=== PATIENT | female | born 1990 | race Caucasian/White ===

== ENCOUNTER 2024-12-09 17:01 | Inpatient (IN) | payer OTHER, SELFPAY ==
[2024-12-09 17:16] VITALS: BP 128/70; PULSE 92; RESP 16; TEMP 36.6; O2SAT 99
[2024-12-09 17:17] VITALS: BMI 28.0
--- NOTE | 2024-12-09 18:31 | PC.ADMIT ---
Mallory arrived via stretcher after being BIBA from [facility]. She was on a medical floor there. Mallory signed a CV in the [facility] registration and signed a 3 day notice upon arrival on M5. Mallory prefers [place] . She is oriented x4 and was cooperative with skin and safety check. Skin check is unremarkable. Mallory was biba to [facility] the other day while intoxicated and telling her mother (after an argument) that she took all 30 of her trazadone pills. She had low potassium and abnormal EKG while there. She was in a monitored bed and She had magnesium and potassium replenishment and her EKG normalized. She states I cant drink anymore. I don't know how to drink just a little. My therapist and I have been talking about this. I do crazy things when I drink. . She reports drinking a 6 pack and 2 tall boys really fast and it hit me hard , she states she normally drinks a couple of times a week now I have been trying to cut back . She states she is a 1.5ppd cigarette smoker, wants NRT. She is open to an addiction consult as well. She denies any health problems and has a PCP. She denies any urges to harm self or others and any visual or perceptual disturbances. She is on 15 minute safety checks.
[2024-12-09 20:00] VITALS: BP 119/60; PULSE 83; RESP 16; TEMP 36.7; O2SAT 99
[2024-12-09 20:47] LABS: Alanine Aminotransferase 48 U/L (0-31); Albumin Level 4.6 g/dL (3.5-5.0); Alkaline Phosphatase 67 U/L (39-117); Anion Gap 13 (12-20); Aspartate Amino Transferase 31 U/L (5-31); Bilirubin Total 0.2 mg/dL (0.0-1.0); Blood Urea Nitrogen 10 mg/dL (9-16); Calcium 10.1 mg/dL (8.4-10.2); Carbon Dioxide 27 mmol/L (22-29); Chloride 106 mmol/L (96-108); Creatinine Clr Calc Pharmacy 85.5; Estimated Glomerular Filt Rate > 60; Glucose Random 191 mg/dL (60-115); Potassium 3.7 mmol/L (3.3-5.1); Sodium 142 mmol/L (135-145); Total Protein 7.4 g/dL (6.5-8.0)
[2024-12-09] MEDS: Nicotine Polacrilex 2 MG GUM 4 MG BUCCAL (22:10)
[2024-12-10] MEDS: traZODone HCL 50 MG TABLET PO ×2 (00:10→23:26)
[2024-12-10 08:00] VITALS: BP 99/48; PULSE 76; TEMP 36.7; O2SAT 96
--- NOTE | 2024-12-10 08:12 | P.CONHOSP_ITS ---
History of Present Illness Data of Consult Service Date: 12/10/24 Primary Care Provider: Unknown Physician HPI Reason for consult: Admission H&P Pt is a 34-year-old female with a PMH significant for?GERD, alcohol use disorder, and anxiety who is admitted to M5 psychiatry unit for increasing depression with SI. Pt had recently had increased life stressors including an ex-boyfriend who was in group home. pt became intoxicated, listening to sad, loud music, and intentionally overdosing on 30 tablets of trazodone. Initially presented to [facility] where she was noted to have somnolence and prolonged QT interval. Was treated with IV magnesium and aggressive IV hydration. Medical consult for admission H&P. ?Pt seen and examined in her room where she is resting comfortably in bed. Pt denies any acute medical concerns: ?I feel okay?. Pt denies headache, increased anxiety, diaphoresis. No auditory, visual, or tactile hallucinations. Denies chest pain/pressure, palpitations. No fever, chills, nausea, vomiting, abdominal pain. Denies chest pain/pressure, palpitations. Labs reviewed, significant for elevated random glucose of 191. Renal and hepatic function WNL. No significant electrolyte abnormalities. Vitals stable and WNL. Review of Systems 2 Review of Systems: Pt has no acute medical complaints at this time. [facility] Medical History (Updated 12/10/24 @ 08:42 by SHAAN Chapa) GERD (gastroesophageal reflux disease) Anxiety Alcohol use disorder Social History Household Members: Family Housing: Apartment Do you presently have visiting nurse or other home services: No Patient Tobacco Use Status: Current everyday Tobacco user Tobacco use type: Cigarette Cigarette Packs Per Day: 1.5 Cigarettes Per Day: 30.0 Smoked in Last 30 Days: Yes e-Cigarette/Vaping Use: Never Used Patient Interested in Nicotine Replacement: Yes Patient Given Instructions on How to Stop Smoking: Yes Date Education Initiated: 12/09/24 Second Hand Smoke Exposure: No Use of substances other than those prescribed or required for medical reasons: No Currently Displaying Signs/Symptoms of Drug Intoxication Withdrawal: No Any prior treatment program specific to substance use: No Have you been hit, kicked, punched, or otherwise hurt by someone within the past year? If so, by whom?: No Do you feel safe in your current relationship?: Yes Is there a partner from a previous relationship who is making you feel unsafe now?: No Are you made to feel afraid or neglected: No Spiritual Healthcare Practices: none Hindu Healthcare Practices: none Cultural Healthcare Practices: none Advance Directives: No Advance Directives Information Provided: No Do you have thoughts of harming others: None Do you have a plan to hurt others: No Plan Recently lost weight without trying: No Nutrition Risks: No Nutritional Risk Patient : No : No Poor oral hygiene: No Meds Allergies Allergy/AdvReac Type Severity Reaction Status Date / Time No Known Allergies Allergy Verified 12/09/24 17:47 Active Medications: Current Medications Acetaminophen (Acetaminophen 325 Mg Tablet) 650 mg PO Q6H PRN PRN Reason: Headache/Pain, Scale 1-10 Al Hydroxide/Mg Hydroxide (Magnesium Hydrox/Alum Hydrox 30 Ml Oral.Susp) 30 ml PO Q6H PRN PRN Reason: Heartburn/Nausea Escitalopram Oxalate (Escitalopram Oxalate 20 Mg Tablet) 20 mg PO DAILY KRISS Hydroxyzine HCl (Hydroxyzine Hcl 25 Mg Tablet) 25 mg PO Q6H PRN PRN Reason: mild anxiety Magnesium Hydroxide (Milk Of Magnesia 30 Ml Oral.Susp) 30 ml PO DAILY PRN PRN Reason: Constipation Nicotine (Nicotine 21 Mg Patch.Td24) 21 mg TRANSDERMA DAILY PRN PRN Reason: smoking cessation Nicotine Polacrilex (Nicotine Polacrilex 2 Mg Gum) 4 mg BUCCAL Q2H PRN PRN Reason: Nicotine Cravings Last Admin: 12/09/24 22:10 Dose: 4 mg Olanzapine (Olanzapine 5 Mg Tablet) 5 mg PO TID PRN PRN Reason: agitation Trazodone HCl (Trazodone Hcl 50 Mg Tablet) 50 mg PO BEDTIME MRX1 PRN PRN Reason: Insomnia Last Admin: 12/10/24 00:10 Dose: 50 mg Home Medications ?Medication ?Instructions ?Recorded ?Confirmed ?Last Taken ?Type escitalopram oxalate 10 mg tablet 10 mg PO QAM 12/09/24 12/09/24 12/09/24 08:00 History folic acid 1 mg tablet 1 mg PO DAILY 12/09/24 12/09/24 Unknown History omeprazole 20 mg capsule,delayed 20 mg PO BID 12/09/24 12/09/24 Unknown History release trazodone 50 mg tablet 50 mg PO BEDTIME 12/09/24 12/09/24 Unknown History Physical Exam 2 Vital Signs and Narrative: Vital Signs: Last Vital Signs Temp 98.1 F 12/09/24 20:00 Pulse 83 12/09/24 20:00 Resp 16 12/09/24 20:00 BP 119/60 12/09/24 20:00 Pulse Ox 99 12/09/24 20:00 O2 Del Method Room Air 12/09/24 20:00 BMI result Body Mass Index 28.0 General: AOx3, no acute distress Resp: CTA bilaterally CVS: S1, S2, RRR GI: +BS, NT, no distention Skin: Warm, dry Neuro: Cranial nerves II-XII grossly intact bilaterally. Motor grossly intact bilaterally. No upper extremity tremors noted. Extremities: No edema Psych: Calm, cooperative Results Labs 12/09/24 20:16 Labs: Laboratory Results - last 24 hr 12/09/24 20:16 Anion Gap 13 Estim Creat Clear Calc 85.5 Estimated GFR > 60 Random Glucose 191 H Calcium 10.1 Total Bilirubin 0.2 AST 31 ALT 48 H Alkaline Phosphatase 67 Total Protein 7.4 Albumin 4.6 Assessment and Plan (1) Medical clearance for psychiatric admission: Status: Acute Plan Pt is a 34-year-old female with a PMH significant for?GERD, alcohol use disorder, and anxiety who is admitted to M5 psychiatry unit for increasing depression with SI. Pt had recently had increased life stressors including an ex-boyfriend who was in group home. pt became intoxicated, listening to sad, loud music, and intentionally overdosing on 30 tablets of trazodone. Initially presented to [facility] where she was noted to have somnolence and prolonged QT interval. Was treated with IV magnesium and aggressive IV hydration. Medical consult for admission H&P. Mood disorder Plan as per psychiatry Alcohol use disorder Does not appear to be in active withdrawal Plan as per psychiatry, addiction medicine GERD Continue PPI Thank you for allowing us to participate in the care of this patient. Signing off at this time. Please re-consult if any acute complaints or issues arise.
[2024-12-10 09:17] LABS: Estimated Average Glucose 123 mg/dL; Hemoglobin A1C 158.8409 umol/L; Hemoglobin A1c % 5.9 % (<6.0); Total Hemoglobin (HGBA1C) 3883.5403 umol/L
[2024-12-10 09:28] LABS: Cholesterol 232 mg/dL (<200); HDL Cholesterol 52 mg/dL (>40); LDL Cholesterol Calculated 134 mg/dL (<100); Triglycerides 231 mg/dL (<150)
[2024-12-10] MEDS: Nicotine 21 MG PATCH.TD24 TRANSDERMA (09:35)
[2024-12-10] MEDS: Escitalopram Oxalate 20 MG TABLET PO (09:37)
[2024-12-10 09:42] LABS: TSH reflex Free T4 2.83 uIU/mL (0.32-4.0)
--- NOTE | 2024-12-10 11:18 | HO.PSYADMNOT ---
HPI Date of Service: 12/10/24 Chief Complaint: gen. anxiety disorder,alcohol use disorder Sources of Information: patient interviewed, chart reviewed and crisis/core team assessment reviewed Additional Sources of Information: Seen 1030am HPI Subjective Notes: Newsome Warning, Conditional Voluntary and 3 Day Healthcare Proxy: No Guardianship: No Medical Problems Affecting Mental Status: No Narrative: I put in a three day, because I have been in the hospital since Saturday, so I am kind of done with all of this. I just need to stop drinking. 34 yo female, [facility] transfer, reports intoxication with possible Trazodone 50 mg #20-30 pills in a suicide attempt after an altercation with her mother. Pt is not sure if she overdosed as she has no recall of this due to intoxication. Pt reports no real precipitant except intoxication, argument with mother and clouded judgment as a result. Also reports partner is incarcerated.Pt has signed a three day notice, I feel stable, I want to discharge ANA, I have been in pt since Saturday and am over it. Past Psychiatric History: IP: [facility] recently (Sep 2024) OD on pills when intoxicated. Completed detox OP: [facility] for therapy; [facility] for psychopharmacology Trials: Hx Denies hx of hiwot or sx of psychosis Medical Evaluation Reviewed: Yes [facility] Medical History (Updated 12/10/24 @ 15:23 by Heather Santiago, ROBOTICS SYSTEMS ENGINEER) Recurrent major depression Generalized anxiety disorder GERD (gastroesophageal reflux disease) Anxiety Alcohol use disorder Family History: Father-alcoholism, cirrhosis which took his life Social History: Only child, lives with her mother. 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 Reports she does not drive Substance History: Alcohol since her teens. Uses 2-3 times per week since [facility] detox Nicotine 1.5 PPD Denies other substance use currently or by history Trauma History: Denies today Diagnostics Vital Signs (24Hr): Vital Signs - 24 hr 12/09/24 17:16 12/09/24 20:00 12/10/24 08:00 Temperature 98 F 98.1 F 98.1 F Pulse Rate 92 83 76 Respiratory Rate 16 16 Blood Pressure 128/70 119/60 99/48 L Pulse Oximetry 99 99 96 Oxygen Delivery Method Room Air BMI result Body Mass Index 28.0 Labs 12/09/24 20:16 Labs: Laboratory Results - last 48 hr 12/09/24 12/10/24 20:16 08:56 Sodium 142 Potassium 3.7 Chloride 106 Carbon Dioxide 27 Anion Gap 13 BUN 10 Creatinine 0.78 Estim Creat Clear Calc 85.5 Estimated GFR > 60 Random Glucose 191 H Estimat Average Glucose 123 Hemoglobin A1c % 5.9 Calcium 10.1 Total Bilirubin 0.2 AST 31 ALT 48 H Alkaline Phosphatase 67 Total Protein 7.4 Albumin 4.6 Triglycerides 231 H Cholesterol 232 H LDL Cholesterol, Calc 134 H HDL Cholesterol 52 TSH 2.83 Meds/Allergies Meds Home Medications ?Medication ?Instructions ?Recorded ?Confirmed ?Type escitalopram oxalate 10 mg tablet 10 mg PO QAM 12/09/24 12/09/24 History folic acid 1 mg tablet 1 mg PO DAILY 12/09/24 12/09/24 History omeprazole 20 mg capsule,delayed 20 mg PO BID 12/09/24 12/09/24 History release trazodone 50 mg tablet 50 mg PO BEDTIME 12/09/24 12/09/24 History Allergies Allergies Allergy/AdvReac Type Severity Reaction Status Date / Time No Known Allergies Allergy Verified 12/09/24 17:47 Mental Status Exam Mental Status Exam Patient Appearance: Fatigued Patient Orientation: Person, Place, Time and Situation Level of Consciousness: Alert Patient Behavior: Appropriate, Talkative, Cooperative and Good Eye Contact Mood Description: Withdrawn Affect Description: Withdrawn Patient Cognition Impaired: No Ability to Follow Directions: Good Speech Pattern: Spontaneous Speech Memory Description: Episodic Impaired Hallucinations: None Delusions: Not Present Thought Process: Goal Oriented Thought Content: positive for Goal Oriented and positive for Suicidal Ideation (denies) Depressive Symptoms: Thoughts of /Suicide (denies) Judgement: Fair Assessment & Plan Assessment & Plan (1) Generalized anxiety disorder: Status: Acute Code(s): F41.1 - Generalized anxiety disorder (2) Recurrent major depression: Status: Acute Code(s): F33.9 - Major depressive disorder, recurrent, unspecified (3) Intentional overdose: Status: Acute Code(s): T50.902A - Poisoning by unspecified drugs, medicaments and biological substances, intentional self-harm, initial encounter Plan Admit, CV, TDN submitted by pt, to 12/15/24. 15 minute checks Continue current regime Addiction consult Collateral Contact Diagnostics as needed Discharge planning Patient educated on: therapeutic strategies Reason for continued inpatient stay Substantial Risk for: rapid decompensation Statement Statement: I have reviewed the history and physical and performed a pertinent examination on my patient. No changes have occurred unless specified. If the History and Physical was not performed prior to admission, the Hospitalist's service will be consulted for completing the admission physical. Time Spent With Patient Time: Total time managing care of this patient today ____ minutes.
[2024-12-10 20:00] VITALS: BP 121/60; PULSE 74; TEMP 36.7; O2SAT 98
[2024-12-11 07:59] VITALS: BP 93/52; PULSE 70; TEMP 36.9; O2SAT 98
[2024-12-11] MEDS: Escitalopram Oxalate 20 MG TABLET PO (08:21)
[2024-12-11 08:24] VITALS: BP 97/46; PULSE 78
[2024-12-11 10:51] VITALS: BP 124/55; PULSE 85
[2024-12-11] MEDS: Omeprazole 20 MG CAPSULE.DR PO ×2 (11:31→20:41)
--- NOTE | 2024-12-11 14:51 | MHC.RECOVRN ---
AUDIT-C Brief Intervention Pt had positive screen for unhealthy alcohol use on admission. Attempted to meet with pt to discuss alcohol use and offer resources, pt declined.
--- NOTE | 2024-12-11 15:53 | MHC.RECOVRN ---
AUDIT-C Brief Intervention Pt had positive screen for unhealthy alcohol use on admission, subsequently met with t/w to discuss alcohol use and recovery supports/options. This sports book writer met with patient to discuss current alcohol use and concerns related to increased risk of alcohol related problems.? Pt reports 6 pack Guadalupe plus 2 22 ounce Coronas 3x weekly. Discussed how alcohol use has impacted health, including negative impact on mental health and overall physical wellbeing. Withdrawal History: denies history of withdrawal/withdrawal seizures Treatment History: one admission at [facility], was there 4-5 days, approx 2-3 months ago Supports:?mom, boyfriend, ex boyfriend Matuesz Discussed risk reduction strategies including drinking below the recommended limit. Provided pt with written resources including information on inpatient and outpatient treatment, KOJO, harm reduction, and recovery coaching. Pt interested in a addictions recovery specialist. Pt declines further intervention, KOJO, appt for treatment related to AUD. Pt plans to return home and follow up with therapist, prescriber, and addictions recovery specialist. Pt provided with t/w contact information if questions or concerns arise. Denies other questions or concerns at this time.? head boys tennis coach referral placed.
--- NOTE | 2024-12-11 16:35 | HO.PSYCHPN ---
Subjective Subjective Date of Service: 12/11/24 Reason For Visit: gen. anxiety disorder,alcohol use disorder Subjective Notes: Conditional Voluntary and 3 Day Healthcare Proxy: No Guardianship: No Medical Problems Affecting Mental Status: No Interim History: Discussed recovery coaching being arranged for her which she is grateful for as she will have support for meetings. Discussed precipitants to OD. Little memory of talking with tw on 12/10. It appears she may have had effects from second half life of Trazodone which we discussed. Denies SI,HI. Attempting to utilize milieu to help herself and strengthen coping skills. Pleased with Lexapro increase. Medication Compliance: Yes Side effects from medications: No Attending Groups: Yes Review of Systems Acute medical concerns: No Review of Systems Review of Systems Denies Mental Status Exam Mental Status Exam Patient Appearance: Appropriate Patient Orientation: Person, Place, Time and Situation Level of Consciousness: Alert Patient Behavior: Appropriate, Talkative, Cooperative and Good Eye Contact Mood Description: Appropriate Affect Description: Appropriate Patient Cognition Impaired: No Ability to Follow Directions: Good Speech Pattern: Spontaneous Speech Memory Description: Episodic Impaired Hallucinations: None Delusions: Not Present Thought Process: Goal Oriented Thought Content: positive for Goal Oriented and positive for Suicidal Ideation (denies) Depressive Symptoms: Thoughts of /Suicide (denies) Judgement: Good Diagnostics Vital Signs (24Hr): Vital Signs - 24 hr 12/10/24 20:00 12/11/24 07:59 12/11/24 08:24 Temperature 98.1 F 98.4 F Pulse Rate 74 70 78 Blood Pressure 121/60 93/52 L 97/46 L Pulse Oximetry 98 98 Oxygen Delivery Method Room Air Room Air 12/11/24 10:51 Temperature Pulse Rate 85 Blood Pressure 124/55 L Pulse Oximetry Oxygen Delivery Method BMI result Body Mass Index 28.0 Labs 12/09/24 20:16 Labs: Laboratory Results - last 48 hr 12/09/24 12/10/24 20:16 08:56 Sodium 142 Potassium 3.7 Chloride 106 Carbon Dioxide 27 Anion Gap 13 BUN 10 Creatinine 0.78 Estim Creat Clear Calc 85.5 Estimated GFR > 60 Random Glucose 191 H Estimat Average Glucose 123 Hemoglobin A1c % 5.9 Calcium 10.1 Total Bilirubin 0.2 AST 31 ALT 48 H Alkaline Phosphatase 67 Total Protein 7.4 Albumin 4.6 Triglycerides 231 H Cholesterol 232 H LDL Cholesterol, Calc 134 H HDL Cholesterol 52 TSH 2.83 Medications Medications Current Medications Acetaminophen (Acetaminophen 325 Mg Tablet) 650 mg PO Q6H PRN PRN Reason: Headache/Pain, Scale 1-10 Al Hydroxide/Mg Hydroxide (Magnesium Hydrox/Alum Hydrox 30 Ml Oral.Susp) 30 ml PO Q6H PRN PRN Reason: Heartburn/Nausea Escitalopram Oxalate (Escitalopram Oxalate 20 Mg Tablet) 20 mg PO DAILY KRISS Last Admin: 12/11/24 08:21 Dose: 20 mg Hydroxyzine HCl (Hydroxyzine Hcl 25 Mg Tablet) 25 mg PO Q6H PRN PRN Reason: mild anxiety Magnesium Hydroxide (Milk Of Magnesia 30 Ml Oral.Susp) 30 ml PO DAILY PRN PRN Reason: Constipation Nicotine (Nicotine 21 Mg Patch.Td24) 21 mg TRANSDERMA DAILY PRN PRN Reason: smoking cessation Last Admin: 12/10/24 09:35 Dose: 21 mg Nicotine Polacrilex (Nicotine Polacrilex 2 Mg Gum) 4 mg BUCCAL Q2H PRN PRN Reason: Nicotine Cravings Last Admin: 12/09/24 22:10 Dose: 4 mg Olanzapine (Olanzapine 5 Mg Tablet) 5 mg PO TID PRN PRN Reason: agitation Omeprazole (Omeprazole 20 Mg Capsule.Dr) 20 mg PO BID KRISS Trazodone HCl (Trazodone Hcl 50 Mg Tablet) 50 mg PO BEDTIME MRX1 PRN PRN Reason: Insomnia Last Admin: 12/10/24 23:26 Dose: 50 mg Allergies Allergies Allergy/AdvReac Type Severity Reaction Status Date / Time No Known Allergies Allergy Verified 12/09/24 17:47 Assessment & Plan Assessment & Plan (1) Generalized anxiety disorder: Status: Acute Code(s): F41.1 - Generalized anxiety disorder (2) Recurrent major depression: Status: Acute Code(s): F33.9 - Major depressive disorder, recurrent, unspecified (3) Intentional overdose: Status: Acute Code(s): T50.902A - Poisoning by unspecified drugs, medicaments and biological substances, intentional self-harm, initial encounter Plan Admit, CV, TDN submitted by pt, to 12/15/24. 15 minute checks Continue current regime Addiction consult Collateral Contact Diagnostics as needed Discharge planning 12/11-Continue to monitor, encourage milieu tx. Reason for continued inpatient stay Substantial Risk for: rapid decompensation Time Spent With Patient Time: Total time managing care of this patient today ____ minutes.
[2024-12-11 20:00] VITALS: BP 130/60; PULSE 88; RESP 16; TEMP 37; O2SAT 98
[2024-12-11] MEDS: traZODone HCL 50 MG TABLET PO (22:35)
[2024-12-12] MEDS: traZODone HCL 50 MG TABLET PO ×2 (00:02→23:15)
[2024-12-12 08:00] VITALS: BP 111/55; PULSE 100; RESP 16; TEMP 36.7; O2SAT 97
[2024-12-12] MEDS: Escitalopram Oxalate 20 MG TABLET PO (10:05)
[2024-12-12] MEDS: Omeprazole 20 MG CAPSULE.DR PO ×2 (10:05→21:04)
--- NOTE | 2024-12-12 10:29 | HO.PSYCHPN ---
Subjective Subjective Date of Service: 12/12/24 Reason For Visit: gen. anxiety disorder,alcohol use disorder Subjective Notes: Conditional Voluntary and 3 Day Interim History: Patient was seen and discussed in rounds today. Records and plans. She has been complaining of some nosebleed and dryness and I ordered saline spray for this. She has visible. Medication compliant. Guarded at times. Eating and sleeping adequately. No other changes were made today. No SI. Review of Systems Review of Systems Yes all other systems are reviewed and are negative Mental Status Exam Mental Status Exam Narrative: In today's visit she is alert, oriented and pleasant. Normal speech. Minimal eye contact. Affect is appropriate and constricted. No signs of psychosis. No AVH. No SI. Cognitively is grossly intact. Able to move all limbs. No gait abnormalities. Judgment is intact Diagnostics Vital Signs (24Hr): Vital Signs - 24 hr 12/11/24 10:51 12/11/24 20:00 12/12/24 08:00 Temperature 98.6 F 98.1 F Pulse Rate 85 88 100 Respiratory Rate 16 16 Blood Pressure 124/55 L 130/60 111/55 L Pulse Oximetry 98 97 Oxygen Delivery Method Room Air Room Air BMI result Body Mass Index 28.0 Labs 12/09/24 20:16 Medications Medications Current Medications Acetaminophen (Acetaminophen 325 Mg Tablet) 650 mg PO Q6H PRN PRN Reason: Headache/Pain, Scale 1-10 Al Hydroxide/Mg Hydroxide (Magnesium Hydrox/Alum Hydrox 30 Ml Oral.Susp) 30 ml PO Q6H PRN PRN Reason: Heartburn/Nausea Escitalopram Oxalate (Escitalopram Oxalate 20 Mg Tablet) 20 mg PO DAILY [facility] Last Admin: 12/12/24 10:05 Dose: 20 mg Hydroxyzine HCl (Hydroxyzine Hcl 25 Mg Tablet) 25 mg PO Q6H PRN PRN Reason: mild anxiety Magnesium Hydroxide (Milk Of Magnesia 30 Ml Oral.Susp) 30 ml PO DAILY PRN PRN Reason: Constipation Nicotine (Nicotine 21 Mg Patch.Td24) 21 mg TRANSDERMA DAILY PRN PRN Reason: smoking cessation Last Admin: 12/10/24 09:35 Dose: 21 mg Nicotine Polacrilex (Nicotine Polacrilex 2 Mg Gum) 4 mg BUCCAL Q2H PRN PRN Reason: Nicotine Cravings Last Admin: 12/09/24 22:10 Dose: 4 mg Olanzapine (Olanzapine 5 Mg Tablet) 5 mg PO TID PRN PRN Reason: agitation Omeprazole (Omeprazole 20 Mg Capsule.Dr) 20 mg PO BID KRISS Last Admin: 12/12/24 10:05 Dose: 20 mg Trazodone HCl (Trazodone Hcl 50 Mg Tablet) 50 mg PO BEDTIME MRX1 PRN PRN Reason: Insomnia Last Admin: 12/12/24 00:02 Dose: 50 mg Allergies Allergies Allergy/AdvReac Type Severity Reaction Status Date / Time No Known Allergies Allergy Verified 12/09/24 17:47 Assessment & Plan Assessment & Plan (1) Generalized anxiety disorder: Status: Acute Code(s): F41.1 - Generalized anxiety disorder (2) Recurrent major depression: Status: Acute Code(s): F33.9 - Major depressive disorder, recurrent, unspecified (3) Intentional overdose: Status: Acute Code(s): T50.902A - Poisoning by unspecified drugs, medicaments and biological substances, intentional self-harm, initial encounter Plan Admit, CV, TDN submitted by pt, to 12/15/24. 15 minute checks Continue current regime Addiction consult Collateral Contact Diagnostics as needed Discharge planning 12/11-Continue to monitor, encourage milieu tx. Reason for continued inpatient stay Substantial Risk for: med/psych decompensation Time Spent With Patient Time: Total time managing care of this patient today ____ minutes.
[2024-12-12] MEDS: Sodium Chloride 0.65 % Nasal 44 ML SPRBTL 1 SPRAY NOSTRIL-B ×2 (10:47→23:15)
[2024-12-12 20:00] VITALS: BP 115/85; PULSE 85; RESP 16; TEMP 36.6; O2SAT 98
[2024-12-13] MEDS: traZODone HCL 50 MG TABLET PO ×3 (01:22→22:38)
[2024-12-13] MEDS: Sodium Chloride 0.65 % Nasal 44 ML SPRBTL 1 SPRAY NOSTRIL-B (01:22)
[2024-12-13 08:00] VITALS: BP 104/57; PULSE 86; TEMP 36.4; O2SAT 97
[2024-12-13] MEDS: Omeprazole 20 MG CAPSULE.DR PO ×2 (08:27→21:31)
[2024-12-13] MEDS: Escitalopram Oxalate 20 MG TABLET PO (08:27)
--- NOTE | 2024-12-13 09:31 | P.PNPSI_ITS ---
Subjective Subjective Date of Service: 12/13/24 Reason For Visit: gen. anxiety disorder,alcohol use disorder Subjective Notes: Conditional Voluntary and 3 Day Interim History: Patient was seen and discussed in rounds today. Records and plans. She has been stable and is doing better. No nosebleeds. The nasal spray has been helpful. Slept better. She is happy to be back on a low-dose lithium. She is having some upper respiratory symptoms and in light of a recent COVID positive discharge patient's labs were ordered. No SI. No other changes were made Review of Systems Review of Systems Yes all other systems are reviewed and are negative Mental Status Exam Mental Status Exam Narrative: In today's visit she is alert, oriented and pleasant. Normal speech. Minimal eye contact. Affect is appropriate and constricted. No signs of psychosis. No AVH. No SI. Cognitively is grossly intact. Able to move all limbs. No gait abnormalities. Judgment is intact Diagnostics Vital Signs (24Hr): Vital Signs - 24 hr 12/12/24 20:00 12/13/24 08:00 Temperature 97.8 F 97.5 F Pulse Rate 85 86 Respiratory Rate 16 Blood Pressure 115/85 104/57 L Pulse Oximetry 98 97 Oxygen Delivery Method Room Air Room Air BMI result Body Mass Index 28.0 Labs 12/09/24 20:16 Medications Medications Current Medications Acetaminophen (Acetaminophen 325 Mg Tablet) 650 mg PO Q6H PRN PRN Reason: Headache/Pain, Scale 1-10 Al Hydroxide/Mg Hydroxide (Magnesium Hydrox/Alum Hydrox 30 Ml Oral.Susp) 30 ml PO Q6H PRN PRN Reason: Heartburn/Nausea Escitalopram Oxalate (Escitalopram Oxalate 20 Mg Tablet) 20 mg PO DAILY [facility] Last Admin: 12/13/24 08:27 Dose: 20 mg Hydroxyzine HCl (Hydroxyzine Hcl 25 Mg Tablet) 25 mg PO Q6H PRN PRN Reason: mild anxiety Magnesium Hydroxide (Milk Of Magnesia 30 Ml Oral.Susp) 30 ml PO DAILY PRN PRN Reason: Constipation Nicotine (Nicotine 21 Mg Patch.Td24) 21 mg TRANSDERMA DAILY PRN PRN Reason: smoking cessation Last Admin: 12/10/24 09:35 Dose: 21 mg Nicotine Polacrilex (Nicotine Polacrilex 2 Mg Gum) 4 mg BUCCAL Q2H PRN PRN Reason: Nicotine Cravings Last Admin: 12/09/24 22:10 Dose: 4 mg Olanzapine (Olanzapine 5 Mg Tablet) 5 mg PO TID PRN PRN Reason: agitation Omeprazole (Omeprazole 20 Mg Capsule.Dr) 20 mg PO BID [facility]ISS Last Admin: 12/13/24 08:27 Dose: 20 mg Sodium Chloride (Sodium Chloride 0.65 % Nasal 44 Ml Sprbtl) 1 spray NOSTRIL-B Q1H PRN PRN Reason: Dry Nasal Passages Last Admin: 12/13/24 01:22 Dose: 1 spray Trazodone HCl (Trazodone Hcl 50 Mg Tablet) 50 mg PO BEDTIME MRX1 PRN PRN Reason: Insomnia Last Admin: 12/13/24 01:22 Dose: 50 mg Allergies Allergies Allergy/AdvReac Type Severity Reaction Status Date / Time No Known Allergies Allergy Verified 12/09/24 17:47 Assessment & Plan Assessment & Plan (1) Generalized anxiety disorder: Status: Acute Code(s): F41.1 - Generalized anxiety disorder (2) Recurrent major depression: Status: Acute Code(s): F33.9 - Major depressive disorder, recurrent, unspecified (3) Intentional overdose: Status: Acute Code(s): T50.902A - Poisoning by unspecified drugs, medicaments and biological substances, intentional self-harm, initial encounter Plan Admit, CV, TDN submitted by pt, to 12/15/24. 15 minute checks Continue current regime Addiction consult Collateral Contact Diagnostics as needed Discharge planning 12/12-Continue to monitor, encourage milieu tx. 12/13: Continue current plans and regimen. SARs test panel ordered Patient educated on: medication risk/benefits Reason for continued inpatient stay Substantial Risk for: med/psych decompensation Time Spent With Patient Time: Total time managing care of this patient today ____ minutes.
[2024-12-13 10:40] LABS: Influenza A PCR NEGATIVE (Negative); Influenza B PCR NEGATIVE (Negative); Resp Syncy Virus RNA Qual PCR NEGATIVE (Negative); SARS COV2 PCR INHOUSE POSITIVE (Negative)
[2024-12-13 18:10] VITALS: BP 130/87; PULSE 82; TEMP 37.2; O2SAT 96
[2024-12-13] MEDS: Acetaminophen 325 MG TABLET 650 MG PO (18:11)
[2024-12-13 20:00] VITALS: BP 135/61; PULSE 98; TEMP 37.2; O2SAT 98
[2024-12-14] MEDS: Sodium Chloride 0.65 % Nasal 44 ML SPRBTL 1 SPRAY NOSTRIL-B ×2 (03:51→14:06)
[2024-12-14 08:00] VITALS: BP 112/56; PULSE 100; RESP 16; TEMP 36.8; O2SAT 97
[2024-12-14] MEDS: Omeprazole 20 MG CAPSULE.DR PO ×2 (08:50→21:21)
[2024-12-14] MEDS: Escitalopram Oxalate 20 MG TABLET PO (08:50)
[2024-12-14] MEDS: Acetaminophen 325 MG TABLET 650 MG PO ×2 (08:50→21:21)
--- NOTE | 2024-12-14 10:10 | HO.PSYCHPN ---
Subjective Subjective Date of Service: 12/14/24 Reason For Visit: gen. anxiety disorder,alcohol use disorder Interim History: Met with patient; discussed with team; reviewed chart Patient said that she is feeling better and would like discharge; 3 day notice is due tomorrow. Patient initially said she still was not sure if she actually overdose did not since she was very intoxicated at the time but accepted freelance writer's explanation that it was confirmed she did overdose on trazodone given the fact that she had significantly elevated QTC up to 610 as reported by sending facility. (Her 1st overdose ingestion was on September 27; this December 07 was the 2nd one). Patient says that she very much needs to stop drinking and sees this as the cause of her overdoses. She says she would like a chemical recovery operator. However does not want to stay any longer on the unit for this to be facilitated. She denies any SI at all and says overall does not struggle with that much depression in general. Mental Status Exam Mental Status Exam Narrative: Pt is alert and oriented; behavior is cooperative, friendly and calm; patient is not in distress; dressed in casual attire with unkempt hair but adequate hygiene; mood is described as Not too much depression and affect congruent; eye contact appropriate; Speech is normal rate, volume and prosody and not pressured; no psychomotor agitation/retardation present; thought process is organized and goal directed; Thought content is on tx; otherwise pertinent to relevant topics and without any delusional content, paranoid ideations or grandiosity; denies any SI/HI. Denies AVH and there is no evidence of perceptual disturbance. Patients insight and judgment improved. Diagnostics Vital Signs (24Hr): Vital Signs - 24 hr 12/13/24 18:10 12/13/24 20:00 Temperature 99.0 F 99.0 F Pulse Rate 82 98 Blood Pressure 130/87 135/61 Pulse Oximetry 96 98 Oxygen Delivery Method Room Air Room Air BMI result Body Mass Index 28.0 Labs 12/09/24 20:16 Labs: Laboratory Results - last 48 hr 12/13/24 09:38 Influenza Type A (PCR) NEGATIVE Influenza Type B (PCR) NEGATIVE RSV RNA Qual (PCR) NEGATIVE SARS-CoV-2 RNA (RT-PCR) POSITIVE A Medications Medications Current Medications Acetaminophen (Acetaminophen 325 Mg Tablet) 650 mg PO Q6H PRN PRN Reason: Headache/Pain, Scale 1-10 Last Admin: 12/14/24 08:50 Dose: 650 mg Al Hydroxide/Mg Hydroxide (Magnesium Hydrox/Alum Hydrox 30 Ml Oral.Susp) 30 ml PO Q6H PRN PRN Reason: Heartburn/Nausea Escitalopram Oxalate (Escitalopram Oxalate 20 Mg Tablet) 20 mg PO DAILY [facility] Last Admin: 12/14/24 08:50 Dose: 20 mg Hydroxyzine HCl (Hydroxyzine Hcl 25 Mg Tablet) 25 mg PO Q6H PRN PRN Reason: mild anxiety Magnesium Hydroxide (Milk Of Magnesia 30 Ml Oral.Susp) 30 ml PO DAILY PRN PRN Reason: Constipation Nicotine (Nicotine 21 Mg Patch.Td24) 21 mg TRANSDERMA DAILY PRN PRN Reason: smoking cessation Last Admin: 12/10/24 09:35 Dose: 21 mg Nicotine Polacrilex (Nicotine Polacrilex 2 Mg Gum) 4 mg BUCCAL Q2H PRN PRN Reason: Nicotine Cravings Last Admin: 12/09/24 22:10 Dose: 4 mg Olanzapine (Olanzapine 5 Mg Tablet) 5 mg PO TID PRN PRN Reason: agitation Omeprazole (Omeprazole 20 Mg Capsule.Dr) 20 mg PO BID [facility] Last Admin: 12/14/24 08:50 Dose: 20 mg Sodium Chloride (Sodium Chloride 0.65 % Nasal 44 Ml Sprbtl) 1 spray NOSTRIL-B Q1H PRN PRN Reason: Dry Nasal Passages Last Admin: 12/14/24 03:51 Dose: 1 spray Trazodone HCl (Trazodone Hcl 50 Mg Tablet) 50 mg PO BEDTIME MRX1 PRN PRN Reason: Insomnia Last Admin: 12/13/24 22:38 Dose: 50 mg Allergies Allergies Allergy/AdvReac Type Severity Reaction Status Date / Time No Known Allergies Allergy Verified 12/09/24 17:47 Assessment & Plan Assessment & Plan (1) Generalized anxiety disorder: Status: Acute Code(s): F41.1 - Generalized anxiety disorder (2) Recurrent major depression: Status: Acute Code(s): F33.9 - Major depressive disorder, recurrent, unspecified (3) Intentional overdose: Status: Acute Code(s): T50.902A - Poisoning by unspecified drugs, medicaments and biological substances, intentional self-harm, initial encounter Plan Admitted for 2nd overdose while intoxicated; elevated QTC up to 610 (later resolved and for 10 on discharge) Her 1st overdose ingestion was on September 27) Hospital course: 12/12-Continue to monitor, encourage milieu tx. 12/13: Continue current plans and regimen. SARs test panel ordered 12/14 Patient said that she is feeling better and would like discharge; 3 day notice is due tomorrow. Patient initially said she still was not sure if she actually overdose did not since she was very intoxicated at the time but accepted freelance writer's explanation that it was confirmed she did overdose on trazodone given the fact that she had significantly elevated QTC up to 610 as reported by sending facility (resolved and 410 on dc). Patient says that she very much needs to stop drinking and sees this as the cause of her overdoses. She says she would like a chemical recovery operator. However does not want to stay any longer on the unit for this to be facilitated. She denies any SI at all and says overall does not struggle with that much depression in general. -COVID positive Plan: 3 day notice due 12/15/24. 15 minute checks Continue current regime Addiction consult Collateral Contact Diagnostics as needed Discharge planning Patient educated on: diagnosis, medication risk/benefits, substance abuse and medical condition Informed Consent: understands Reason for continued inpatient stay Substantial Risk for: stable for discharge and rapid decompensation Time Spent With Patient Time: Total time managing care of this patient today ____ minutes.
[2024-12-14 20:00] VITALS: BP 106/54; PULSE 97; RESP 18; TEMP 36.9; O2SAT 98
[2024-12-14] MEDS: traZODone HCL 50 MG TABLET PO ×2 (20:50→21:57)
[2024-12-15 08:32] VITALS: BP 114/67; PULSE 81; RESP 16; TEMP 36.6; O2SAT 97
[2024-12-15] MEDS: Escitalopram Oxalate 20 MG TABLET PO (09:17)
[2024-12-15] MEDS: Omeprazole 20 MG CAPSULE.DR PO (09:17)
--- NOTE | 2024-12-15 15:11 | P.DS_ITS ---
DS: Providers Provider Date of Service: 12/15/24 Date of admission: 12/09/24 17:01 Date of discharge: 12/15/24 Primary care physician: Unknown Physician Admitting clinician: Heather Santiago Attending physician on admission: Luis Enrique Wiggins Consults: 12/09/24 17:55 Consult to Hospitalist Routine Comment: Consulting Provider: [facility] Reason For Exam: admission 12/09/24 19:53 Addiction Medicine Provider Routine Consulting Provider: Addiction Covering Reason for consultation: alcohol use disorder Attending physician on discharge: Luis Enrique Wiggins Discharging clinician: Heather Santiago DS: Diagnosis Discharge Diagnosis (1) Generalized anxiety disorder: Status: Acute (2) Recurrent major depression: Status: Acute (3) Intentional overdose: Status: Acute DS: Medications Discharge Medications Home Medications: Previous Rx's ?Medication ?Instructions ?Recorded acetaminophen 325 mg tablet 650 mg (2 x 325 mg) PO Q6H PRN 12/15/24 Headache/Pain, Scale 1-10 #0 tabs escitalopram oxalate 20 mg tablet 20 mg PO DAILY #30 tabs 12/15/24 folic acid 1 mg tablet 1 mg PO DAILY #30 tabs 12/15/24 omeprazole 20 mg capsule,delayed 20 mg PO BID #60 caps 12/15/24 release sodium chloride 0.65 % nasal spray 1 spray intranasal Q1H PRN Dry 12/15/24 aerosol ([place] Nasal) Nasal Passages #0 mL trazodone 50 mg tablet 50 mg PO BEDTIME MRX1 PRN Insomnia 12/15/24 #30 tabs Mental Status Exam Mental Status Exam Patient Appearance: Appropriate Patient Orientation: Person, Place, Time and Situation Level of Consciousness: Alert Patient Behavior: Appropriate, Talkative, Cooperative and Good Eye Contact Mood Description: Appropriate Affect Description: Appropriate Patient Cognition Impaired: No Ability to Follow Directions: Good Speech Pattern: Spontaneous Speech Memory Description: Episodic Impaired Hallucinations: None Delusions: Not Present Thought Process: Goal Oriented Thought Content: positive for Goal Oriented and positive for Suicidal Ideation (denies) Depressive Symptoms: Thoughts of /Suicide (denies) Judgement: Good Data Data Completed and Pending Completed studies during hospitalization [Text1]: 12/09/24 12/10/24 12/13/24 20:16 08:56 09:38 Sodium 142 Potassium 3.7 Chloride 106 Carbon Dioxide 27 Anion Gap 13 BUN 10 Creatinine 0.78 Estim Creat Clear Calc 85.5 Estimated GFR > 60 Random Glucose 191 H Estimat Average Glucose 123 Hemoglobin A1c % 5.9 Calcium 10.1 Total Bilirubin 0.2 AST 31 ALT 48 H Alkaline Phosphatase 67 Total Protein 7.4 Albumin 4.6 Triglycerides 231 H Cholesterol 232 H LDL Cholesterol, Calc 134 H HDL Cholesterol 52 TSH 2.83 Influenza Type A (PCR) NEGATIVE Influenza Type B (PCR) NEGATIVE RSV RNA Qual (PCR) NEGATIVE SARS-CoV-2 RNA (RT-PCR) POSITIVE A DS: Summary Hospital Course Hospital Course: Admission to adult psychiatry for exacerbation of recurrent major depression, generalized anxiety disorder, PTSD and alcohol use disorder. Pt sent in transfer from [facility] post OD of Trazodone 50 mg #20-30. Pt does not recall overdosing. She does recall being intoxicated and having an argument with her mother. Medications were evaluated and adjusted. Pt was offered full milieu support to strengthen her coping skills. She discharges on a three day notice of intent. She will continue with therapy, psychopharmacology and addiction recovery coaching post discharge. Pt is recovering from COVID upon discharge. Status at Discharge Functional status at discharge: independent ambulation Overall status at discharge: patient is progressing back to baseline Time Spent with Patient Time attestation: Total time managing care of this patient today ____ minutes. Time spent: Less than 30 minutes Discharge Plan Discharge Anticipated Discharge Date/Time: 12/15/24 12:00 Patient Disposition: Home, Self-Care Discharge Diagnosis: Recurrent major depression Generalized Anxiety Disorder Alcohol Use Disorder Referrals: [facility] Psychiatry with Estefania Da Silva [Other] - 12/24/24 1:30 pm [facility] Therapy with Rajesh Bernal [Other] - 12/16/24 5:00 pm [facility] Student Support Services Director [Other] - 1 Week ( has requested a volleyball coach referral be placed for pt. Please follow up if they have not reached out within a few days.) Physician,Unknown J [Primary Care Provider] - 1 Week Discharge Medications: New acetaminophen 325 mg Tablet 650 mg PO Q6H PRN (Reason: Headache/Pain, Scale 1-10) Qty: 0 0RF trazodone 50 mg Tablet 50 mg PO BEDTIME MRX1 PRN (Reason: Insomnia) Qty: 30 0RF escitalopram oxalate 20 mg Tablet 20 mg PO DAILY Qty: 30 0RF [place] Nasal 0.65 % Aerosol,[place] 1 spray intranasal Q1H PRN (Reason: Dry Nasal Passages) Qty: 0 0RF Continued omeprazole 20 mg capsule,delayed release(DR/EC) 20 mg PO BID Qty: 60 0RF folic acid 1 mg tablet 1 mg PO DAILY Qty: 30 0RF Discontinued trazodone 50 mg tablet 50 mg PO BEDTIME escitalopram oxalate 10 mg tablet 10 mg PO QAM Discharge Orders: Discharge Order (Routine); Ordered 12/15/24 Ordered By: Heather Santiago Diet: Advance to usual diet Activity on Discharge: As tolerated Stand Alone Forms: Patient Portal Discharge page, Community Support Print Language: Swedish Care Plan Goals: Abstinence from alcohol/substances Mood and Behavioral Stabilization Health Concerns: Abstinence from alcohol/substances Mood and Behavioral Stabilization Plan of Treatment: Attend scheduled appointments Take medications as directed Call/Return as needed Assessment: Discharge via three day notice expiration. Denies SI,HI,AH,VH No sx of acute psychosis, hiwot Discharge Date/Time: 12/15/24 11:15
== END 2024-12-15 11:15 | disposition home or self-care (01) | DRG 751 ==
PROVIDERS: Psychiatry & Neurology Psychiatry; Admitting Provider Psychiatry & Neurology Psychiatry; Visit Provider Clinical Nurse Specialist Psychiatric/Mental Health, Adult
DX: F33.9 Major depressive disorder, recurrent, unspecified (principal); U07.1 COVID-19; R45.851 Suicidal ideations; F10.90 Alcohol use, unspecified, uncomplicated; F17.210 Nicotine dependence, cigarettes, uncomplicated; K21.9 Gastro-esophageal reflux disease without esophagitis; F41.1 Generalized anxiety disorder; Z91.51 Personal history of suicidal behavior; Z79.899 Other long term (current) drug therapy
CPT/HCPCS: 0241U; 36415; 80053; 80061; 83036; 84443

== ENCOUNTER → 2024-12-09 17:01 | Outpatient (BNV) | payer OTHER, SELFPAY | PROVIDERS: Admitting Provider Psychiatry & Neurology Psychiatry; Visit Provider Clinical Nurse Specialist Psychiatric/Mental Health, Adult | DX: F33.2 Major depressive disorder, recurrent severe without psychotic features (principal); T50.902A Poisoning by unspecified drugs, medicaments and biological substances, intentional self-harm, initial encounter; F41.1 Generalized anxiety disorder | CPT/HCPCS: 99231; 99232 ==

== ENCOUNTER → 2024-12-09 17:01 | Outpatient (BNV) | payer OTHER, SELFPAY | PROVIDERS: Admitting Provider Psychiatry & Neurology Psychiatry; Visit Provider Student in an Organized Health Care Education/Training Program | DX: Z02.2 Encounter for examination for admission to residential institution (principal) | CPT/HCPCS: 99429 ==